=== PATIENT | male | born 1945 | race Caucasian/White ===

== ENCOUNTER 2020-04-28 12:36 | Inpatient (IN) ==
[2020-04-28] MEDS ORDERED: NS 0.9% 1000 ml BAG 1,000 ML IV ONE (12:42)
[2020-04-28 13:39] LABS: ABS Basophils 0.1 10^3/ul (0-0.2); ABS Eosinophils 0.1 10^3/ul (0-0.6); ABS Lymphocytes 1.7 10^3/ul (1.0-4.8); ABS Monocytes 0.5 10^3/ul (0-0.8); ABS Neutrophils 4.9 10^3/ul (1.5-7.7); Eosinophil % 1.1 %; Hematocrit 29 % (42-52); Hemoglobin 9.5 g/dL (14.0-18.0); Lymphocyte % 23.6 %; Mean Corpuscular HGB Conc 33 g/dL (31-36); Mean Corpuscular Hemoglobin 25 pg (27-31); Mean Corpuscular Volume 76 fL (80-94); Mean Platelet Volume 8.3 fL (7.4-10.4); Platelet Count 227 10^3/uL (150-450); Red Blood Count 3.85 10^6 /uL (4.18-5.48); Red Cell Distribution Width 17 % (10-15); White Blood Count 7.2 10^3/uL (3.5-10.8)
[2020-04-28 13:55] LABS: Activated Partial Thrombo Time 27.2 seconds (26.0-38.0); INR 1.16 (0.82-1.09)
[2020-04-28 13:58] LABS: Troponin I 0.02 ng/mL (<0.03)
[2020-04-28 14:19] LABS: Urine Appearance Cloudy; Urine Bilirubin Negative (Negative); Urine Blood 2+ (Negative); Urine Color Amber; Urine Glucose Negative (Negative); Urine Ketones Negative (Negative); Urine Nitrite Negative (Negative); Urine Protein 1+(30 mg/dL) (Negative); Urine Specific Gravity 1.025 (1.010-1.030); Urine Urobilinogen Negative (Negative)
[2020-04-28 14:20] LABS: ALT 81 U/L (7-52); AST 38 U/L (13-39); Albumin 2.7 g/dL (3.2-5.2); Albumin/Globulin Ratio 0.7 (1-3); Alkaline Phosphatase 104 U/L (34-104); Anion Gap 6 mmol/L (2-11); BUN/Creatinine Ratio 33.8 (8-20); Blood Urea Nitrogen 27 mg/dL (6-24); C Reactive Protein 91.44 mg/L (<8.01); CO2 Carbon Dioxide 24 mmol/L (22-32); Calcium 8.6 mg/dL (8.6-10.3); Chloride 107 mmol/L (101-111); EGFR African American 113.7 (>60); Globulin 3.7 g/dL (2-4); Glucose 85 mg/dL (70-100); Potassium 3.8 mmol/L (3.5-5.0); Sodium 137 mmol/L (135-145); Total Protein 6.4 g/dL (6.4-8.9)
[2020-04-28 14:21] LABS: Urine Bacteria Absent (Absent); Urine Red Blood Cell 1+(3-5/hpf) (Absent); Urine Squamous Epithelial Cell Present (Absent); Urine White Blood Cell 2+(11-20/hpf) (Absent)
[2020-04-28] MEDS ORDERED: Albuterol HFA INHALER 8 gm MDI INH ONE (14:49)
[2020-04-28] MEDS ORDERED: Amoxicillin/Clavul 875/125 TAB (Augmentin 875 tab) PO ONE (14:50)
[2020-04-28] MEDS ORDERED: methylPREDNISolone 125 mg 2 ML VIAL IV ONE (14:50)
[2020-04-28 15:19] LABS: LDH 183 U/L (140-271)
[2020-04-28 15:38] LABS: Ferritin 181.1 ng/mL (24-336)
[2020-04-28] MEDS ORDERED: Ondansetron 4 mg VIAL 2 MG/ML 2 ml VIAL IV PRN (16:54)
[2020-04-28] MEDS ORDERED: Albuterol HFA INHALER 8 gm MDI INH PRN (17:15)
[2020-04-28] MEDS ORDERED: Dextrose 50% Syringe 50 ml 25 GM/50 ML SYRINGE IV PUSH PRN (17:30)
[2020-04-28] MEDS ORDERED: Piperacillin/Tazobac ADVAN 3.375 GM in NS 0.9% 100 ml BAG 100 ML IV ONE (17:32)
[2020-04-28] MEDS ORDERED: Zosyn per Pharmacy NOTE FOLLOW UP SCH (18:00)
[2020-04-28 18:19] LABS: Total Iron Binding Capacity 307 mcg/dL (250-450); Transferrin 219 mg/dL (203-362)
[2020-04-28 18:23] LABS: % Iron Saturation 7 % (15-55); Iron < 20 ug/dL (50-212); Unsaturated Iron Binding < 292 ug/dL
[2020-04-28] MEDS: Mometasone/Formoter 100/5 MDI INH SCH (19:28)
[2020-04-28] MEDS: SPIRIVA Respimat (tiotropium) 2.5 mcg/inh Inhaler INH SCH (19:28)
[2020-04-28 20:28] LABS: Albumin 2.6 g/dL (3.2-5.2); Albumin/Globulin Ratio 0.6 (1-3); BUN/Creatinine Ratio 31.5 (8-20); Calcium 8.4 mg/dL (8.6-10.3); EGFR African American 126.4 (>60); EGFR Non-African American 104.5 (>60); Globulin 4.2 g/dL (2-4); Potassium 4.8 mmol/L (3.5-5.0); Total Bilirubin 0.4 mg/dL (0.2-1.0); Total Protein 6.8 g/dL (6.4-8.9)
[2020-04-28] MEDS ORDERED: Insulin GLARGINE 100 un/ml 10 ml VIAL SUBCUT SCH (21:00)
[2020-04-28] MEDS: Enoxaparin 40 MG/0.4 ML SYR SUBCUT SCH (22:15)
[2020-04-28] MEDS: Lidocaine PATCH 5% PATCH TRANSDERM SCH (22:17)
[2020-04-28] MEDS: ZOSYN 3.375 GM Q8H per EXTENDED INFUSION IV SCH (23:27)
[2020-04-29] MEDS ORDERED: Lidocaine Patch REMOVE PATCH PATCH OFF SCH (01:00)
[2020-04-29 06:40] LABS: ABS Lymphocytes 0.6 10^3/ul (1.0-4.8); ABS Monocytes 0.2 10^3/ul (0-0.8); ABS Neutrophils 4.1 10^3/ul (1.5-7.7); Hematocrit 30 % (42-52); Hemoglobin 9.6 g/dL (14.0-18.0); Lymphocyte % 12.5 %; Mean Corpuscular HGB Conc 32 g/dL (31-36); Mean Corpuscular Hemoglobin 25 pg (27-31); Mean Corpuscular Volume 77 fL (80-94); Mean Platelet Volume 8.5 fL (7.4-10.4); Platelet Count 196 10^3/uL (150-450); Red Blood Count 3.91 10^6 /uL (4.18-5.48); Red Cell Distribution Width 17 % (10-15); White Blood Count 4.9 10^3/uL (3.5-10.8)
[2020-04-29] MEDS: Mometasone/Formoter 100/5 MDI INH SCH ×2 (07:39→19:45)
[2020-04-29] MEDS: ZOSYN 3.375 GM Q8H per EXTENDED INFUSION IV SCH ×3 (09:24→23:07)
[2020-04-29] MEDS: Polyethylene Glycol 3350 17 GM PACKET PO SCH (09:30)
[2020-04-29] MEDS: Lidocaine PATCH 5% PATCH TRANSDERM SCH ×2 (09:38→20:29)
[2020-04-29 13:26] LABS: Glucose Confirmatory 402 mg/dL (70-100)
[2020-04-29] MEDS: SPIRIVA Respimat (tiotropium) 2.5 mcg/inh Inhaler INH SCH (19:45)
[2020-04-29] MEDS: Enoxaparin 40 MG/0.4 ML SYR SUBCUT SCH (20:19)
[2020-04-29] MEDS ORDERED: Insulin GLARGINE 100 un/ml 10 ml VIAL SUBCUT SCH (21:00)
[2020-04-30 06:42] LABS: ABS Eosinophils 0.1 10^3/ul (0-0.6); ABS Lymphocytes 1.6 10^3/ul (1.0-4.8); ABS Monocytes 0.4 10^3/ul (0-0.8); Eosinophil % 1.1 %; Hematocrit 28 % (42-52); Lymphocyte % 19.4 %; Mean Corpuscular HGB Conc 32 g/dL (31-36); Mean Corpuscular Hemoglobin 25 pg (27-31); Mean Corpuscular Volume 77 fL (80-94); Mean Platelet Volume 8.5 fL (7.4-10.4); Nucleated Red Blood Cells % 0.1; Platelet Count 216 10^3/uL (150-450); Red Blood Count 3.64 10^6 /uL (4.18-5.48); Red Cell Distribution Width 17 % (10-15); White Blood Count 8.1 10^3/uL (3.5-10.8)
[2020-04-30 07:03] LABS: Albumin 2.5 g/dL (3.2-5.2); Albumin/Globulin Ratio 0.7 (1-3); BUN/Creatinine Ratio 45.1 (8-20); C Reactive Protein 55.72 mg/L (<8.01); Calcium 8.1 mg/dL (8.6-10.3); EGFR African American 110.5 (>60); EGFR Non-African American 91.3 (>60); Globulin 3.6 g/dL (2-4); Potassium 4.3 mmol/L (3.5-5.0); Total Bilirubin 0.2 mg/dL (0.2-1.0); Total Protein 6.1 g/dL (6.4-8.9)
[2020-04-30] MEDS: Mometasone/Formoter 100/5 MDI INH SCH ×2 (08:04→19:48)
[2020-04-30] MEDS: ZOSYN 3.375 GM Q8H per EXTENDED INFUSION IV SCH ×2 (09:00→15:54)
[2020-04-30] MEDS: Lidocaine Patch REMOVE PATCH PATCH OFF SCH (09:02)
[2020-04-30] MEDS: Polyethylene Glycol 3350 17 GM PACKET PO SCH (09:03)
[2020-04-30] MEDS: SPIRIVA Respimat (tiotropium) 2.5 mcg/inh Inhaler INH SCH (19:48)
[2020-04-30] MEDS: Enoxaparin 40 MG/0.4 ML SYR SUBCUT SCH (21:59)
[2020-04-30] MEDS: Lidocaine PATCH 5% PATCH TRANSDERM SCH (22:00)
[2020-04-30] MEDS: Insulin GLARGINE 100 un/ml 10 ml VIAL SUBCUT SCH (22:02)
[2020-05-01] MEDS: ZOSYN 3.375 GM Q8H per EXTENDED INFUSION IV SCH ×3 (00:19→16:29)
[2020-05-01] MEDS: Mometasone/Formoter 100/5 MDI INH SCH ×2 (08:11→19:47)
[2020-05-01] MEDS: Lidocaine Patch REMOVE PATCH PATCH OFF SCH (08:54)
[2020-05-01] MEDS: Polyethylene Glycol 3350 17 GM PACKET PO SCH (09:06)
[2020-05-01] MEDS: Lidocaine PATCH 5% PATCH TRANSDERM SCH ×2 (09:07→16:26)
[2020-05-01 09:32] LABS: ABS Eosinophils 0.1 10^3/ul (0-0.6); ABS Lymphocytes 1.8 10^3/ul (1.0-4.8); ABS Monocytes 0.5 10^3/ul (0-0.8); ABS Neutrophils 5.1 10^3/ul (1.5-7.7); Eosinophil % 1.9 %; Hematocrit 31 % (42-52); Hemoglobin 9.6 g/dL (14.0-18.0); Lymphocyte % 23.3 %; Mean Corpuscular HGB Conc 31 g/dL (31-36); Mean Corpuscular Hemoglobin 24 pg (27-31); Mean Corpuscular Volume 78 fL (80-94); Mean Platelet Volume 8.3 fL (7.4-10.4); Platelet Count 265 10^3/uL (150-450); Red Blood Count 3.97 10^6 /uL (4.18-5.48); Red Cell Distribution Width 18 % (10-15); White Blood Count 7.5 10^3/uL (3.5-10.8)
[2020-05-01 09:50] LABS: BUN/Creatinine Ratio 30.1 (8-20); Calcium 8.2 mg/dL (8.6-10.3); EGFR African American 126.4 (>60); EGFR Non-African American 104.5 (>60)
[2020-05-01] MEDS: SPIRIVA Respimat (tiotropium) 2.5 mcg/inh Inhaler INH SCH (19:46)
[2020-05-01] MEDS: Enoxaparin 40 MG/0.4 ML SYR SUBCUT SCH (21:25)
[2020-05-01] MEDS: Insulin GLARGINE 100 un/ml 10 ml VIAL SUBCUT SCH (21:25)
[2020-05-02] MEDS: ZOSYN 3.375 GM Q8H per EXTENDED INFUSION IV SCH ×3 (01:09→16:36)
[2020-05-02] MEDS: Lidocaine Patch REMOVE PATCH PATCH OFF SCH ×2 (01:09→21:07)
[2020-05-02] MEDS ORDERED: Iodixanol (CONTRAST) 320 MG/ML 100 ML SDV IV ONE (07:15)
[2020-05-02] MEDS: Mometasone/Formoter 100/5 MDI INH SCH ×2 (08:22→20:03)
[2020-05-02] MEDS: Polyethylene Glycol 3350 17 GM PACKET PO SCH (08:43)
[2020-05-02] MEDS: Lidocaine PATCH 5% PATCH TRANSDERM SCH (08:43)
[2020-05-02] MEDS: SPIRIVA Respimat (tiotropium) 2.5 mcg/inh Inhaler INH SCH (20:03)
[2020-05-02] MEDS: Enoxaparin 40 MG/0.4 ML SYR SUBCUT SCH (21:05)
[2020-05-02] MEDS: Insulin GLARGINE 100 un/ml 10 ml VIAL SUBCUT SCH (21:05)
[2020-05-03] MEDS: ZOSYN 3.375 GM Q8H per EXTENDED INFUSION IV SCH ×3 (00:18→16:02)
[2020-05-03] MEDS: Mometasone/Formoter 100/5 MDI INH SCH ×2 (07:55→19:12)
[2020-05-03] MEDS: Lidocaine PATCH 5% PATCH TRANSDERM SCH (09:26)
[2020-05-03] MEDS: Polyethylene Glycol 3350 17 GM PACKET PO SCH (09:26)
[2020-05-03] MEDS ORDERED: Saline NASAL SPRAY 0.65% BTL BOTH NARES PRN (17:51)
[2020-05-03] MEDS: SPIRIVA Respimat (tiotropium) 2.5 mcg/inh Inhaler INH SCH (19:12)
[2020-05-03] MEDS: Enoxaparin 40 MG/0.4 ML SYR SUBCUT SCH (21:13)
[2020-05-03] MEDS: Insulin GLARGINE 100 un/ml 10 ml VIAL SUBCUT SCH (21:13)
[2020-05-03] MEDS: Lidocaine Patch REMOVE PATCH PATCH OFF SCH (21:14)
[2020-05-04] MEDS: ZOSYN 3.375 GM Q8H per EXTENDED INFUSION IV SCH ×2 (00:47→09:47)
[2020-05-04] MEDS: Mometasone/Formoter 100/5 MDI INH SCH (07:46)
[2020-05-04] MEDS: Lidocaine PATCH 5% PATCH TRANSDERM SCH (09:47)
[2020-05-04] MEDS: Polyethylene Glycol 3350 17 GM PACKET PO SCH (09:50)
[2020-05-04 11:18] VITALS: BP 136/52
== END 2020-05-04 17:00 | DRG 193 ==
LOC: ED 12:36 → MED 18:38
PROVIDERS: ADMIT Internal Medicine; ATTEND Internal Medicine

== ENCOUNTER 2020-06-06 22:56 | Inpatient (IN) ==
[2020-06-06] MEDS ORDERED: Lactated Ringers 1000 ml BAG IV.FLUID IV ONE (23:07)
[2020-06-07 01:03] LABS: Activated Partial Thrombo Time 35.4 seconds (26.0-38.0); INR 1.55 (0.82-1.09)
[2020-06-07 01:04] LABS: ABS Basophils 0.1 10^3/ul (0-0.2); ABS Lymphocytes 1.2 10^3/ul (1.0-4.8); ABS Monocytes 0.5 10^3/ul (0-0.8); ABS Neutrophils 16.9 10^3/ul (1.5-7.7); Eosinophil % 0.1 %; Hematocrit 31 % (42-52); Hemoglobin 9.8 g/dL (14.0-18.0); Lymphocyte % 6.2 %; Mean Corpuscular HGB Conc 32 g/dL (31-36); Mean Corpuscular Hemoglobin 23 pg (27-31); Mean Platelet Volume 8.8 fL (7.4-10.4); Platelet Count 280 10^3/uL (150-450); Red Blood Count 4.26 10^6 /uL (4.18-5.48); Red Cell Distribution Width 19 % (10-15); White Blood Count 18.6 10^3/uL (3.5-10.8)
[2020-06-07 01:09] LABS: ALT 23 U/L (7-52); AST 27 U/L (13-39); Albumin/Globulin Ratio 0.7 (1-3); Alkaline Phosphatase 91 U/L (34-104); Anion Gap 11 mmol/L (2-11); Blood Urea Nitrogen 39 mg/dL (6-24); C Reactive Protein 346.23 mg/L (<8.01); CO2 Carbon Dioxide 20 mmol/L (22-32); Calcium 8.7 mg/dL (8.6-10.3); Chloride 103 mmol/L (101-111); EGFR African American 69.9 (>60); EGFR Non-African American 57.8 (>60); Globulin 4.4 g/dL (2-4); Glucose 160 mg/dL (70-100); Potassium 3.4 mmol/L (3.5-5.0); Sodium 134 mmol/L (135-145); Total Protein 7.4 g/dL (6.4-8.9)
[2020-06-07] MEDS ORDERED: Albuterol 2.5mg/3 ml (0.083%) NEB.SOLN INH ONE (01:22)
[2020-06-07 01:26] LABS: Troponin I 0.07 ng/mL (<0.03)
[2020-06-07 01:28] LABS: Urine Appearance Cloudy; Urine Bilirubin Negative (Negative); Urine Blood 2+ (Negative); Urine Color Yellow; Urine Glucose Negative (Negative); Urine Ketones Negative (Negative); Urine Nitrite Negative (Negative); Urine Protein 2+(100 mg/dL) (Negative); Urine Specific Gravity 1.017 (1.002-1.030); Urine Urobilinogen Negative (Negative)
[2020-06-07] MEDS ORDERED: Piperacillin/Tazobac ADVAN 3.375 GM in NS 0.9% 100 ml BAG 100 ML IVPB ONE (01:33)
[2020-06-07 01:35] LABS: Urine Bacteria 1+ (Absent); Urine Red Blood Cell 3+(>10/hpf) (Absent); Urine Squamous Epithelial Cell Present (Absent); Urine White Blood Cell 3+(>20/hpf) (Absent)
[2020-06-07] MEDS ORDERED: Piperacillin/Tazobac 3.375 GM BAG ONE (02:40)
[2020-06-07 02:51] LABS: Mean Corpuscular Volume 73 fL (80-94)
[2020-06-07] MEDS ORDERED: Dextrose 50% Syringe 50 ml 25 GM/50 ML SYRINGE IV PUSH PRN (06:47)
[2020-06-07] MEDS ORDERED: NS 0.9% 1000 ml BAG 1,000 ML IV SCH ×2 (07:00→12:45)
[2020-06-07] MEDS ORDERED: Vancomycin 1,250 MG in NS 0.9% 250 ml 250 ML IVPB ONE (07:30)
[2020-06-07 07:51] LABS: Influenza A Molecular Negative (Negative); Influenza B Molecular Negative (Negative)
[2020-06-07] MEDS ORDERED: Vancomycin per Pharmacy 1 EA NOTE FOLLOW UP SCH (08:00)
[2020-06-07] MEDS ORDERED: Zosyn per Pharmacy NOTE FOLLOW UP SCH (08:00)
[2020-06-07 08:07] LABS: Anion Gap 11 mmol/L (2-11); Blood Urea Nitrogen 39 mg/dL (6-24); CO2 Carbon Dioxide 19 mmol/L (22-32); Calcium 8.2 mg/dL (8.6-10.3); Chloride 105 mmol/L (101-111); EGFR African American 64.9 (>60); EGFR Non-African American 53.7 (>60); Glucose 179 mg/dL (70-100); Potassium 3.3 mmol/L (3.5-5.0); Sodium 135 mmol/L (135-145)
[2020-06-07] MEDS: ZOSYN 3.375 GM Q8H per EXTENDED INFUSION IV SCH ×2 (09:20→16:52)
[2020-06-07] MEDS ORDERED: Lidocaine PATCH 5% PATCH TRANSDERM PRN (09:51)
[2020-06-07] MEDS ORDERED: Albuterol HFA INHALER 8 gm MDI INH PRN (10:05)
[2020-06-07] MEDS ORDERED: Analgesic BALM 114 GM TOPICAL PRN (10:09)
[2020-06-07] MEDS: Mometasone/Formoter 200/5 MDI INH SCH ×2 (11:12→19:50)
[2020-06-07 11:50] LABS: Troponin I 0.11 ng/mL (<0.03)
[2020-06-07] MEDS: Potassium Chlor 20 meq TAB.ER PO SCH ×2 (12:04→15:17)
[2020-06-07] MEDS: Insulin GLARGINE 100 un/ml 10 ml VIAL SUBCUT SCH (12:10)
[2020-06-07] MEDS: Hydrocortisone INJ 100 MG/2ML 2 ML VIAL IV SCH ×2 (12:12→18:08)
[2020-06-07] MEDS ORDERED: NS 0.9% 1000 ml BAG 1,000 ML IV ONE (12:34)
[2020-06-07] MEDS: Heparin 5000 UNITS/ML 1 mL VIAL SUBCUT SCH ×2 (13:39→21:39)
[2020-06-07 16:56] LABS: Troponin I 0.05 ng/mL (<0.03)
[2020-06-07] MEDS: SPIRIVA Respimat (tiotropium) 2.5 mcg/inh Inhaler INH SCH (19:51)
[2020-06-07] MEDS: Lidocaine Patch REMOVE PATCH PATCH OFF SCH (21:41)
[2020-06-08] MEDS: Hydrocortisone INJ 100 MG/2ML 2 ML VIAL IV SCH ×3 (01:34→16:17)
[2020-06-08] MEDS: ZOSYN 3.375 GM Q8H per EXTENDED INFUSION IV SCH ×3 (01:34→16:21)
[2020-06-08] MEDS: Heparin 5000 UNITS/ML 1 mL VIAL SUBCUT SCH ×3 (06:04→21:16)
[2020-06-08 06:33] LABS: ABS Lymphocytes 0.6 10^3/ul (1.0-4.8); ABS Monocytes 0.5 10^3/ul (0-0.8); ABS Neutrophils 12.7 10^3/ul (1.5-7.7); Eosinophil % 0.1 %; Hematocrit 26 % (42-52); Lymphocyte % 4.3 %; Mean Corpuscular HGB Conc 31 g/dL (31-36); Mean Corpuscular Hemoglobin 23 pg (27-31); Mean Corpuscular Volume 72 fL (80-94); Mean Platelet Volume 8.3 fL (7.4-10.4); Platelet Count 197 10^3/uL (150-450); Red Blood Count 3.57 10^6 /uL (4.18-5.48); Red Cell Distribution Width 18 % (10-15); White Blood Count 13.8 10^3/uL (3.5-10.8)
[2020-06-08 06:37] LABS: BUN/Creatinine Ratio 37.7 (8-20); EGFR African American 118.9 (>60); EGFR Non-African American 98.2 (>60); Potassium 3.4 mmol/L (3.5-5.0)
[2020-06-08] MEDS: Mometasone/Formoter 200/5 MDI INH SCH ×2 (08:00→20:46)
[2020-06-08] MEDS: Insulin GLARGINE 100 un/ml 10 ml VIAL SUBCUT SCH (08:08)
[2020-06-08] MEDS ORDERED: PAIN RELIEVING RUB (MENTHOL/SALICYLATE) 1 APPLIC TUBE TOPICAL PRN (12:00)
[2020-06-08] MEDS: SPIRIVA Respimat (tiotropium) 2.5 mcg/inh Inhaler INH SCH (20:46)
[2020-06-08] MEDS: Lidocaine Patch REMOVE PATCH PATCH OFF SCH (21:16)
[2020-06-09] MEDS: ZOSYN 3.375 GM Q8H per EXTENDED INFUSION IV SCH ×3 (01:33→17:58)
[2020-06-09] MEDS: Hydrocortisone INJ 100 MG/2ML 2 ML VIAL IV SCH ×2 (04:41→16:09)
[2020-06-09] MEDS: Heparin 5000 UNITS/ML 1 mL VIAL SUBCUT SCH ×3 (04:44→20:59)
[2020-06-09 05:37] LABS: ABS Lymphocytes 1.2 10^3/ul (1.0-4.8); ABS Monocytes 0.5 10^3/ul (0-0.8); Hematocrit 24 % (42-52); Hemoglobin 7.4 g/dL (14.0-18.0); Mean Corpuscular HGB Conc 31 g/dL (31-36); Mean Corpuscular Hemoglobin 23 pg (27-31); Mean Corpuscular Volume 73 fL (80-94); Mean Platelet Volume 8.7 fL (7.4-10.4); Platelet Count 176 10^3/uL (150-450); Red Blood Count 3.29 10^6 /uL (4.18-5.48); Red Cell Distribution Width 18 % (10-15); White Blood Count 11.8 10^3/uL (3.5-10.8)
[2020-06-09 05:54] LABS: Calcium 8.2 mg/dL (8.6-10.3); EGFR African American 124.4 (>60); EGFR Non-African American 102.8 (>60); Potassium 3.5 mmol/L (3.5-5.0)
[2020-06-09] MEDS: Mometasone/Formoter 200/5 MDI INH SCH ×2 (07:19→19:59)
[2020-06-09] MEDS: Insulin GLARGINE 100 un/ml 10 ml VIAL SUBCUT SCH (09:31)
[2020-06-09] MEDS: Lidocaine Patch REMOVE PATCH PATCH OFF SCH (19:17)
[2020-06-09] MEDS: SPIRIVA Respimat (tiotropium) 2.5 mcg/inh Inhaler INH SCH (19:59)
[2020-06-10] MEDS: ZOSYN 3.375 GM Q8H per EXTENDED INFUSION IV SCH ×3 (00:13→16:55)
[2020-06-10] MEDS: Heparin 5000 UNITS/ML 1 mL VIAL SUBCUT SCH ×3 (05:31→21:02)
[2020-06-10] MEDS: Insulin GLARGINE 100 un/ml 10 ml VIAL SUBCUT SCH (08:25)
[2020-06-10] MEDS: Mometasone/Formoter 200/5 MDI INH SCH ×2 (08:32→19:11)
[2020-06-10 10:37] LABS: ABS Lymphocytes 1.4 10^3/ul (1.0-4.8); ABS Monocytes 0.5 10^3/ul (0-0.8); ABS Neutrophils 5.7 10^3/ul (1.5-7.7); Eosinophil % 0.3 %; Hematocrit 23 % (42-52); Hemoglobin 7.2 g/dL (14.0-18.0); Lymphocyte % 18.3 %; Mean Corpuscular HGB Conc 31 g/dL (31-36); Mean Corpuscular Hemoglobin 23 pg (27-31); Mean Corpuscular Volume 72 fL (80-94); Mean Platelet Volume 8.7 fL (7.4-10.4); Platelet Count 192 10^3/uL (150-450); Red Blood Count 3.16 10^6 /uL (4.18-5.48); Red Cell Distribution Width 18 % (10-15); White Blood Count 7.6 10^3/uL (3.5-10.8)
[2020-06-10 11:05] LABS: Calcium 7.9 mg/dL (8.6-10.3); EGFR African American 132.7 (>60); EGFR Non-African American 109.6 (>60); Potassium 3.4 mmol/L (3.5-5.0)
[2020-06-10 12:14] LABS: C Reactive Protein 68.21 mg/L (<8.01)
[2020-06-10] MEDS: Lidocaine Patch REMOVE PATCH PATCH OFF SCH (19:01)
[2020-06-10] MEDS: SPIRIVA Respimat (tiotropium) 2.5 mcg/inh Inhaler INH SCH (20:31)
[2020-06-11] MEDS: ZOSYN 3.375 GM Q8H per EXTENDED INFUSION IV SCH ×3 (00:07→16:59)
[2020-06-11] MEDS: Heparin 5000 UNITS/ML 1 mL VIAL SUBCUT SCH ×3 (05:46→20:47)
[2020-06-11 06:58] LABS: ABS Eosinophils 0.1 10^3/ul (0-0.6); ABS Lymphocytes 2.1 10^3/ul (1.0-4.8); ABS Monocytes 0.6 10^3/ul (0-0.8); ABS Neutrophils 6.5 10^3/ul (1.5-7.7); Hematocrit 25 % (42-52); Hemoglobin 7.7 g/dL (14.0-18.0); Lymphocyte % 22.3 %; Mean Corpuscular HGB Conc 31 g/dL (31-36); Mean Corpuscular Hemoglobin 23 pg (27-31); Mean Corpuscular Volume 72 fL (80-94); Mean Platelet Volume 8.3 fL (7.4-10.4); Platelet Count 240 10^3/uL (150-450); Red Blood Count 3.39 10^6 /uL (4.18-5.48); Red Cell Distribution Width 19 % (10-15); White Blood Count 9.3 10^3/uL (3.5-10.8)
[2020-06-11 07:08] LABS: Blood Urea Nitrogen 19 mg/dL (6-24); CO2 Carbon Dioxide 20 mmol/L (22-32); Calcium 8.1 mg/dL (8.6-10.3); EGFR African American 137.2 (>60); EGFR Non-African American 113.4 (>60); Glucose 124 mg/dL (70-100); Potassium 3.4 mmol/L (3.5-5.0); Sodium 142 mmol/L (135-145)
[2020-06-11 07:10] LABS: Total Iron Binding Capacity 283 mcg/dL (250-450); Transferrin 202 mg/dL (203-362)
[2020-06-11 07:12] LABS: % Iron Saturation 7 % (15-55); Iron < 20 ug/dL (50-212); Unsaturated Iron Binding < 268 ug/dL
[2020-06-11 07:15] LABS: Anion Gap 9 mmol/L (2-11); Chloride 113 mmol/L (101-111)
[2020-06-11] MEDS: Mometasone/Formoter 200/5 MDI INH SCH ×2 (07:27→19:21)
[2020-06-11 07:28] LABS: Ferritin 105.5 ng/mL (24-336)
[2020-06-11] MEDS: Insulin GLARGINE 100 un/ml 10 ml VIAL SUBCUT SCH (08:54)
[2020-06-11] MEDS: Morphine 2 MG/ML SYRINGE IV PRN ×2 (11:16→20:40)
[2020-06-11] MEDS: SPIRIVA Respimat (tiotropium) 2.5 mcg/inh Inhaler INH SCH (19:23)
[2020-06-11] MEDS: Lidocaine Patch REMOVE PATCH PATCH OFF SCH (20:46)
[2020-06-12] MEDS: ZOSYN 3.375 GM Q8H per EXTENDED INFUSION IV SCH (00:31)
[2020-06-12] MEDS: Morphine 2 MG/ML SYRINGE IV PRN ×3 (05:30→19:57)
[2020-06-12] MEDS: Heparin 5000 UNITS/ML 1 mL VIAL SUBCUT SCH ×3 (05:32→20:00)
[2020-06-12 05:58] LABS: ABS Eosinophils 0.1 10^3/ul (0-0.6); ABS Lymphocytes 2.7 10^3/ul (1.0-4.8); ABS Monocytes 0.7 10^3/ul (0-0.8); Eosinophil % 1.6 %; Hematocrit 24 % (42-52); Hemoglobin 7.4 g/dL (14.0-18.0); Lymphocyte % 31.3 %; Mean Corpuscular HGB Conc 31 g/dL (31-36); Mean Corpuscular Hemoglobin 23 pg (27-31); Mean Corpuscular Volume 73 fL (80-94); Mean Platelet Volume 7.9 fL (7.4-10.4); Platelet Count 270 10^3/uL (150-450); Red Blood Count 3.26 10^6 /uL (4.18-5.48); Red Cell Distribution Width 18 % (10-15); White Blood Count 8.5 10^3/uL (3.5-10.8)
[2020-06-12 06:04] LABS: Calcium 7.7 mg/dL (8.6-10.3); EGFR African American 144.5 (>60); EGFR Non-African American 119.4 (>60); Potassium 3.3 mmol/L (3.5-5.0)
[2020-06-12 06:47] LABS: Microcytosis 1+
[2020-06-12] MEDS: Mometasone/Formoter 200/5 MDI INH SCH ×2 (07:33→19:16)
[2020-06-12] MEDS ORDERED: Potassium Chlor 20 meq TAB.ER PO ONE ×2 (09:46→12:00)
[2020-06-12] MEDS: Insulin GLARGINE 100 un/ml 10 ml VIAL SUBCUT SCH (09:59)
[2020-06-12] MEDS: SPIRIVA Respimat (tiotropium) 2.5 mcg/inh Inhaler INH SCH (19:19)
[2020-06-12] MEDS: Lidocaine Patch REMOVE PATCH PATCH OFF SCH (20:00)
[2020-06-13] MEDS: Morphine 2 MG/ML SYRINGE IV PRN ×3 (04:11→10:10)
[2020-06-13] MEDS: Heparin 5000 UNITS/ML 1 mL VIAL SUBCUT SCH (05:45)
[2020-06-13] MEDS: Mometasone/Formoter 200/5 MDI INH SCH (07:23)
[2020-06-13] MEDS: Insulin GLARGINE 100 un/ml 10 ml VIAL SUBCUT SCH (08:02)
[2020-06-13 11:30] VITALS: BP 147/58
== END 2020-06-13 10:45 | DRG 871 ==
LOC: ED 22:56 → MED 06-07 07:09
PROVIDERS: ADMIT Internal Medicine; ATTEND Internal Medicine

== ENCOUNTER 2020-07-03 09:04 | Inpatient (IN) ==
[2020-07-03] MEDS: NS 0.9% 1000 ml BAG 1,000 ML IV.FLUID IV ONE ×3 (09:26→11:30)
[2020-07-03] MEDS ORDERED: cefTRIAXone 1 gm/50 mL NS BAG 1 GM/50 ML BAG IV ONE (09:41)
[2020-07-03 09:55] LABS: ABS Basophils 0.1 10^3/ul (0-0.2); ABS Lymphocytes 2.1 10^3/ul (1.0-4.8); ABS Monocytes 0.7 10^3/ul (0-0.8); ABS Neutrophils 8.5 10^3/ul (1.5-7.7); Eosinophil % 0.3 %; Hematocrit 32 % (42-52); Hemoglobin 9.9 g/dL (14.0-18.0); Lymphocyte % 18.1 %; Mean Corpuscular HGB Conc 31 g/dL (31-36); Mean Corpuscular Hemoglobin 22 pg (27-31); Mean Corpuscular Volume 69 fL (80-94); Mean Platelet Volume 7.7 fL (7.4-10.4); Platelet Count 278 10^3/uL (150-450); Red Blood Count 4.63 10^6 /uL (4.18-5.48); Red Cell Distribution Width 19 % (10-15); White Blood Count 11.4 10^3/uL (3.5-10.8)
[2020-07-03 09:57] LABS: Urine Appearance Cloudy; Urine Bilirubin Negative (Negative); Urine Blood 2+ (Negative); Urine Color Yellow; Urine Glucose Negative (Negative); Urine Ketones Negative (Negative); Urine Nitrite Negative (Negative); Urine Protein Negative (Negative); Urine Specific Gravity 1.013 (1.002-1.030); Urine Urobilinogen Negative (Negative)
[2020-07-03 09:58] LABS: INR 1.27 (0.82-1.09)
[2020-07-03 10:02] LABS: Urine Bacteria Absent (Absent); Urine Red Blood Cell 3+(>10/hpf) (Absent); Urine Squamous Epithelial Cell Present (Absent); Urine White Blood Cell 3+(>20/hpf) (Absent)
[2020-07-03 10:07] LABS: ALT 27 U/L (7-52); AST 28 U/L (13-39); Albumin 3.1 g/dL (3.2-5.2); Albumin/Globulin Ratio 0.7 (1-3); Alkaline Phosphatase 101 U/L (34-104); Anion Gap 9 mmol/L (2-11); Blood Urea Nitrogen 26 mg/dL (6-24); C Reactive Protein 39.16 mg/L (<8.01); CO2 Carbon Dioxide 24 mmol/L (22-32); Calcium 8.8 mg/dL (8.6-10.3); Chloride 99 mmol/L (101-111); EGFR African American 103.2 (>60); EGFR Non-African American 85.3 (>60); Globulin 4.5 g/dL (2-4); Glucose 101 mg/dL (70-100); Potassium 3.6 mmol/L (3.5-5.0); Sodium 132 mmol/L (135-145); Total Protein 7.6 g/dL (6.4-8.9)
[2020-07-03 10:12] LABS: Troponin I 0.03 ng/mL (<0.03)
[2020-07-03] MEDS ORDERED: Ondansetron 4 mg VIAL 2 MG/ML 2 ml VIAL IV PRN (11:55)
[2020-07-03] MEDS ORDERED: Vancomycin per Pharmacy 1 EA NOTE FOLLOW UP PRN (12:17)
[2020-07-03] MEDS ORDERED: Vancomycin 1,500 MG in NS 0.9% 250 ml 250 ML IVPB ONE (13:00)
[2020-07-03] MEDS ORDERED: Dextrose 50% Syringe 50 ml 25 GM/50 ML SYRINGE IV PUSH PRN (13:37)
[2020-07-03] MEDS ORDERED: Albuterol HFA INHALER 8 gm MDI INH PRN (13:56)
[2020-07-03] MEDS: Enoxaparin 40 MG/0.4 ML SYR SUBCUT SCH (13:57)
[2020-07-03 15:34] LABS: Troponin I 0.04 ng/mL (<0.03)
[2020-07-03 19:07] LABS: Troponin I 0.04 ng/mL (<0.03)
[2020-07-03] MEDS: SPIRIVA Respimat (tiotropium) 2.5 mcg/inh Inhaler INH SCH (19:15)
[2020-07-03] MEDS: Mometasone/Formoter 200/5 MDI INH SCH (19:16)
[2020-07-03 21:23] LABS: Troponin I 0.04 ng/mL (<0.03)
[2020-07-04 06:10] LABS: ABS Basophils 0.1 10^3/ul (0-0.2); ABS Lymphocytes 1.1 10^3/ul (1.0-4.8); ABS Monocytes 0.4 10^3/ul (0-0.8); ABS Neutrophils 5.7 10^3/ul (1.5-7.7); Hematocrit 31 % (42-52); Hemoglobin 9.7 g/dL (14.0-18.0); Lymphocyte % 15.9 %; Mean Corpuscular HGB Conc 31 g/dL (31-36); Mean Corpuscular Hemoglobin 22 pg (27-31); Mean Corpuscular Volume 70 fL (80-94); Mean Platelet Volume 7.8 fL (7.4-10.4); Nucleated Red Blood Cells % 0.1; Platelet Count 226 10^3/uL (150-450); Red Blood Count 4.45 10^6 /uL (4.18-5.48); Red Cell Distribution Width 19 % (10-15); White Blood Count 7.2 10^3/uL (3.5-10.8)
[2020-07-04] MEDS: Vancomycin 750 MG in NS 0.9% 250 ML IVPB SCH ×4 (06:16→22:20)
[2020-07-04 06:17] LABS: EGFR African American 144.5 (>60); EGFR Non-African American 119.4 (>60); Potassium 3.8 mmol/L (3.5-5.0)
[2020-07-04] MEDS ORDERED: diPHENhydraMINE IV 50 MG/ML 1 ml VIAL (BENADRYL) IV ONE (07:30)
[2020-07-04] MEDS: Mometasone/Formoter 200/5 MDI INH SCH ×2 (07:43→20:14)
[2020-07-04] MEDS ORDERED: Iodixanol (CONTRAST) 320 MG/ML 100 ML SDV IV ONE (08:03)
[2020-07-04] MEDS: cefTRIAXone 1 gm/50 mL NS BAG 1 GM/50 ML BAG IVPB SCH (10:50)
[2020-07-04] MEDS: Insulin GLARGINE 100 un/ml 10 ml VIAL SUBCUT SCH (10:50)
[2020-07-04] MEDS: Polyethylene Glycol 3350 17 GM PACKET PO SCH (10:54)
[2020-07-04] MEDS ORDERED: Vancomycin Trough Check NOTE FOLLOW UP ONE (13:30)
[2020-07-04] MEDS: Enoxaparin 40 MG/0.4 ML SYR SUBCUT SCH (13:47)
[2020-07-04] MEDS: SPIRIVA Respimat (tiotropium) 2.5 mcg/inh Inhaler INH SCH (20:15)
[2020-07-05 01:00] LABS: Urine Appearance Cloudy; Urine Bilirubin Negative (Negative); Urine Blood Negative (Negative); Urine Color Yellow; Urine Glucose 3+(>=500 mg/dL) (Negative); Urine Ketones Negative (Negative); Urine Nitrite Negative (Negative); Urine Protein 1+(30 mg/dL) (Negative); Urine Specific Gravity 1.036 (1.002-1.030); Urine Urobilinogen Negative (Negative)
[2020-07-05 01:05] LABS: Urine Bacteria Absent (Absent); Urine Red Blood Cell 1+(3-5/hpf) (Absent); Urine Squamous Epithelial Cell Present (Absent); Urine White Blood Cell 3+(>20/hpf) (Absent)
[2020-07-05] MEDS: Vancomycin 750 MG in NS 0.9% 250 ML IVPB SCH ×3 (05:42→22:21)
[2020-07-05] MEDS: Polyethylene Glycol 3350 17 GM PACKET PO SCH (08:26)
[2020-07-05] MEDS: Insulin GLARGINE 100 un/ml 10 ml VIAL SUBCUT SCH (08:27)
[2020-07-05 08:51] LABS: ABS Eosinophils 0.1 10^3/ul (0-0.6); ABS Monocytes 0.7 10^3/ul (0-0.8); ABS Neutrophils 6.1 10^3/ul (1.5-7.7); Eosinophil % 1.2 %; Hematocrit 28 % (42-52); Hemoglobin 8.5 g/dL (14.0-18.0); Lymphocyte % 22.7 %; Mean Corpuscular HGB Conc 30 g/dL (31-36); Mean Corpuscular Hemoglobin 21 pg (27-31); Mean Corpuscular Volume 70 fL (80-94); Mean Platelet Volume 8.1 fL (7.4-10.4); Platelet Count 240 10^3/uL (150-450); Red Blood Count 3.98 10^6 /uL (4.18-5.48); Red Cell Distribution Width 19 % (10-15); White Blood Count 8.9 10^3/uL (3.5-10.8)
[2020-07-05 09:00] LABS: INR 1.12 (0.82-1.09)
[2020-07-05 09:11] LABS: Albumin 2.6 g/dL (3.2-5.2); Albumin/Globulin Ratio 0.7 (1-3); C Reactive Protein 55.99 mg/L (<8.01); Calcium 7.8 mg/dL (8.6-10.3); EGFR African American 158.5 (>60); Globulin 3.6 g/dL (2-4); Magnesium 1.8 mg/dL (1.9-2.7); Potassium 3.6 mmol/L (3.5-5.0); Total Bilirubin 0.2 mg/dL (0.2-1.0); Total Protein 6.2 g/dL (6.4-8.9)
[2020-07-05] MEDS: cefTRIAXone 1 gm/50 mL NS BAG 1 GM/50 ML BAG IVPB SCH (10:14)
[2020-07-05] MEDS: Mometasone/Formoter 200/5 MDI INH SCH ×2 (11:23→20:37)
[2020-07-05] MEDS: Enoxaparin 40 MG/0.4 ML SYR SUBCUT SCH (12:58)
[2020-07-05] MEDS: Collagenase 250 units/gm OINT 1 tube TOPICAL SCH (18:18)
[2020-07-05] MEDS: SPIRIVA Respimat (tiotropium) 2.5 mcg/inh Inhaler INH SCH (20:37)
[2020-07-06] MEDS: Vancomycin 750 MG in NS 0.9% 250 ML IVPB SCH ×3 (06:03→19:59)
[2020-07-06 06:59] LABS: Hematocrit 30 % (42-52); Hemoglobin 9.1 g/dL (14.0-18.0); Mean Corpuscular HGB Conc 31 g/dL (31-36); Mean Corpuscular Hemoglobin 22 pg (27-31); Mean Corpuscular Volume 70 fL (80-94); Mean Platelet Volume 7.6 fL (7.4-10.4); Platelet Count 251 10^3/uL (150-450); Red Blood Count 4.22 10^6 /uL (4.18-5.48); Red Cell Distribution Width 19 % (10-15); White Blood Count 8.1 10^3/uL (3.5-10.8)
[2020-07-06] MEDS: Mometasone/Formoter 200/5 MDI INH SCH ×2 (07:24→20:20)
[2020-07-06 08:30] LABS: ABS Basophils 0.1 10^3/ul (0-0.2); ABS Eosinophils 0.3 10^3/ul (0-0.6); ABS Lymphocytes 2.2 10^3/ul (1.0-4.8); ABS Monocytes 0.6 10^3/ul (0-0.8); Eosinophil % 3.4 %; Lymphocyte % 27.3 %
[2020-07-06] MEDS: Insulin GLARGINE 100 un/ml 10 ml VIAL SUBCUT SCH (09:32)
[2020-07-06] MEDS: Polyethylene Glycol 3350 17 GM PACKET PO SCH (09:55)
[2020-07-06] MEDS: Enoxaparin 40 MG/0.4 ML SYR SUBCUT SCH (12:35)
[2020-07-06] MEDS: Collagenase 250 units/gm OINT 1 tube TOPICAL SCH (13:11)
[2020-07-06] MEDS: SPIRIVA Respimat (tiotropium) 2.5 mcg/inh Inhaler INH SCH (20:22)
[2020-07-07] MEDS ORDERED: Vancomycin Trough Check NOTE FOLLOW UP ONE (06:00)
[2020-07-07 07:02] LABS: EGFR African American 168.2 (>60)
[2020-07-07] MEDS: Mometasone/Formoter 200/5 MDI INH SCH (08:19)
[2020-07-07] MEDS: Insulin GLARGINE 100 un/ml 10 ml VIAL SUBCUT SCH (08:52)
[2020-07-07] MEDS: Polyethylene Glycol 3350 17 GM PACKET PO SCH (08:54)
[2020-07-07] MEDS: Vancomycin 750 MG in NS 0.9% 250 ML IVPB SCH (08:57)
[2020-07-07] MEDS: Collagenase 250 units/gm OINT 1 tube TOPICAL SCH (10:21)
[2020-07-07] MEDS: Enoxaparin 40 MG/0.4 ML SYR SUBCUT SCH (13:07)
[2020-07-07 16:13] VITALS: BP 140/64
== END 2020-07-07 17:00 | DRG 872 ==
LOC: ED 09:04 → MED 12:55
PROVIDERS: ADMIT Internal Medicine; ATTEND Internal Medicine

== ENCOUNTER 2022-07-11 02:27 | Observation (INO) ==
[2022-07-11 03:29] LABS: ABS Basophils 0.1 10^3/uL (0.0-0.1); ABS Eosinophils 0.3 10^3/uL (0.0-0.5); ABS Lymphocytes 4.9 10^3/uL (1.0-4.8); ABS Monocytes 0.9 10^3/uL (0.0-1.1); ABS Neutrophils 7.8 10^3/uL (1.5-7.6); ABS Nucleated RBC 0.01 10^3/ul; Eosinophil % 2.3 %; Hematocrit 41.2 % (38-53); Hemoglobin 13.8 g/dL (13.2-16.3); Lymphocyte % 34.9 %; Mean Corpuscular Hemoglobin 27.8 pg (27-33); Mean Corpuscular Hgb Conc 33.4 g/dL (31-36); Mean Corpuscular Volume 83.4 fL (80-97); Platelet Count 229 10^3/uL (150-450); Red Blood Count 4.94 10^6/uL (4.06-5.63); Red Cell Distribution Width 16.5 % (12-17); White Blood Count 13.9 10^3/uL (3.6-10.2)
[2022-07-11 03:34] LABS: INR 1.04 (0.88-1.18)
[2022-07-11 04:12] LABS: Albumin 3.9 g/dL (3.2-5.2); Albumin/Globulin Ratio 1.1 (1-3); C Reactive Protein 12.43 mg/L (<8.01); Calcium 9.5 mg/dL (8.6-10.3); Creatinine, Serum 0.97 mg/dL (0.67-1.17); Globulin 3.6 g/dL (2-4); Potassium 4.1 mmol/L (3.5-5.0); Total Bilirubin 0.5 mg/dL (0.2-1.0); Total Protein 7.5 g/dL (6.4-8.9); eGFR CKD-EPI 79.9 (>60)
[2022-07-11 04:39] LABS: Urine Appearance Turbid; Urine Bilirubin Negative (Negative); Urine Blood 3+ (Negative); Urine Color Yellow; Urine Glucose 2+(150 mg/dL) (Negative); Urine Ketones Negative (Negative); Urine Nitrite Positive (Negative); Urine Protein 2+(100 mg/dL) (Negative); Urine Specific Gravity 1.014 (1.002-1.030); Urine Urobilinogen Negative (Negative)
[2022-07-11] MEDS ORDERED: Piperacillin/Tazobac ADVAN 3.375 GM in NS 0.9% 100 ml BAG 100 ML IV ONE (04:52)
[2022-07-11] MEDS ORDERED: Lactated Ringers 1000 ml BAG 1,000 ML IV ONE (04:53)
[2022-07-11 05:13] LABS: Urine Bacteria 1+ (Absent); Urine Red Blood Cell 3+(>10/hpf) (Absent); Urine Squamous Epithelial Cell Present (Absent); Urine White Blood Cell 3+(>20/hpf) (Absent)
[2022-07-11] MEDS ORDERED: Vancomycin 1,000 MG in NS 0.9% 250 ml 250 ML IVPB ONE (05:35)
[2022-07-11] MEDS ORDERED: Vancomycin per Pharmacy 1 EA NOTE FOLLOW UP SCH (06:00)
[2022-07-11] MEDS ORDERED: Albuterol HFA INHALER 8 gm MDI INH PRN (06:04)
[2022-07-11] MEDS ORDERED: fentaNYL 100 mcg/2 ml 50 MCG/ML VIAL IV SLOW PU PRN (06:39)
[2022-07-11] MEDS ORDERED: Dextrose 50% Syringe 50 ml 25 GM/50 ML SYRINGE IV PUSH PRN (06:50)
[2022-07-11] MEDS ORDERED: Lactated Ringers 1000 ml BAG 1,000 ML IV SCH (07:00)
[2022-07-11] MEDS: Insulin GLARGINE 100 un/ml 10 ml VIAL SUBCUT SCH (08:06)
[2022-07-11] MEDS: Enoxaparin 40 MG/0.4 ML SYR SUBCUT SCH (08:06)
[2022-07-11] MEDS ORDERED: Cefepime ADVAN 1 GM in NS 0.9% 50 ML 50 ML IVPB SCH (09:00)
[2022-07-11] MEDS: Mometasone/Formoter 200/5 MDI INH SCH ×2 (09:26→20:17)
[2022-07-11] MEDS ORDERED: Cefepime 1 GM in Dextrose 1 GM/50 ML BAG IV SCH (09:30)
[2022-07-11] MEDS: Vancomycin 1000 MG in NS 0.9% 250 ML IVPB SCH (19:58)
[2022-07-11] MEDS ORDERED: Vancomycin 1000 MG in NS 0.9% 250 ML IVPB SCH (20:00)
[2022-07-11] MEDS: SPIRIVA Respimat (tiotropium) 2.5 mcg/inh Inhaler INH SCH (20:58)
[2022-07-11] MEDS: Polyethylene Glycol 3350 17 GM PACKET PO SCH (21:38)
[2022-07-11] MEDS: Cefepime 1 GM in Dextrose 1 GM/50 ML BAG IV SCH (21:41)
[2022-07-12 05:56] LABS: ABS Eosinophils 0.2 10^3/uL (0.0-0.5); ABS Lymphocytes 2.3 10^3/uL (1.0-4.8); ABS Monocytes 0.6 10^3/uL (0.0-1.1); ABS Neutrophils 5.2 10^3/uL (1.5-7.6); ABS Nucleated RBC 0.01 10^3/ul; Eosinophil % 2.9 %; Hematocrit 34.4 % (38-53); Hemoglobin 11.5 g/dL (13.2-16.3); Lymphocyte % 27.3 %; Mean Corpuscular Hemoglobin 27.7 pg (27-33); Mean Corpuscular Hgb Conc 33.4 g/dL (31-36); Mean Platelet Volume 8.7 fL (7.5-11.2); Nucleated Red Blood Cells % 0.1 /100 WBC (0.0-0.4); Platelet Count 182 10^3/uL (150-450); Red Blood Count 4.15 10^6/uL (4.06-5.63); Red Cell Distribution Width 16.5 % (12-17); White Blood Count 8.3 10^3/uL (3.6-10.2)
[2022-07-12] MEDS: Enoxaparin 40 MG/0.4 ML SYR SUBCUT SCH (06:07)
[2022-07-12 06:26] LABS: Blood Urea Nitrogen 12 mg/dL (6-24); CO2 Carbon Dioxide 26 mmol/L (22-32); Calcium 8.6 mg/dL (8.6-10.3); Chloride 107 mmol/L (101-111); Creatinine, Serum 0.74 mg/dL (0.67-1.17); Glucose 133 mg/dL (70-100); Magnesium 1.7 mg/dL (1.9-2.7); Sodium 139 mmol/L (135-145); eGFR CKD-EPI 92.7 (>60)
[2022-07-12 06:29] LABS: Anion Gap 6 mmol/L (2-16)
[2022-07-12] MEDS ORDERED: Magnesium Sulfate 2 gm BAG 2 GM/50 ML BAG IVPB ONE (07:18)
[2022-07-12] MEDS: Mometasone/Formoter 200/5 MDI INH SCH ×2 (07:32→20:09)
[2022-07-12] MEDS: Polyethylene Glycol 3350 17 GM PACKET PO SCH ×2 (09:56→21:47)
[2022-07-12] MEDS: Insulin GLARGINE 100 un/ml 10 ml VIAL SUBCUT SCH (09:57)
[2022-07-12] MEDS: Vancomycin 1000 MG in NS 0.9% 250 ML IVPB SCH ×2 (11:15→19:56)
[2022-07-12] MEDS: Cefepime 1 GM in Dextrose 1 GM/50 ML BAG IV SCH ×2 (14:34→21:46)
[2022-07-12] MEDS ORDERED: Vancomycin per Pharmacy 1 EA NOTE FOLLOW UP SCH (16:00)
[2022-07-12] MEDS: SPIRIVA Respimat (tiotropium) 2.5 mcg/inh Inhaler INH SCH (20:09)
[2022-07-13] MEDS: Enoxaparin 40 MG/0.4 ML SYR SUBCUT SCH (06:35)
[2022-07-13 06:39] VITALS: BP 145/78
[2022-07-13 07:24] LABS: ABS Basophils 0.1 10^3/uL (0.0-0.1); ABS Eosinophils 0.2 10^3/uL (0.0-0.5); ABS Lymphocytes 2.3 10^3/uL (1.0-4.8); ABS Monocytes 0.5 10^3/uL (0.0-1.1); ABS Neutrophils 4.8 10^3/uL (1.5-7.6); Eosinophil % 2.7 %; Hematocrit 35.9 % (38-53); Hemoglobin 11.9 g/dL (13.2-16.3); Lymphocyte % 28.7 %; Mean Corpuscular Hgb Conc 33.3 g/dL (31-36); Mean Corpuscular Volume 84.1 fL (80-97); Mean Platelet Volume 8.2 fL (7.5-11.2); Nucleated Red Blood Cells % 0.1 /100 WBC (0.0-0.4); Platelet Count 169 10^3/uL (150-450); Red Blood Count 4.26 10^6/uL (4.06-5.63); Red Cell Distribution Width 16.6 % (12-17); White Blood Count 7.9 10^3/uL (3.6-10.2)
[2022-07-13] MEDS ORDERED: Vancomycin Trough Check NOTE FOLLOW UP ONE (07:30)
[2022-07-13 08:05] LABS: Calcium 8.5 mg/dL (8.6-10.3); Creatinine, Serum 0.72 mg/dL (0.67-1.17); Magnesium 1.9 mg/dL (1.9-2.7); Potassium 4.1 mmol/L (3.5-5.0); eGFR CKD-EPI 93.5 (>60)
[2022-07-13] MEDS: Mometasone/Formoter 200/5 MDI INH SCH (08:32)
[2022-07-13] MEDS: Insulin GLARGINE 100 un/ml 10 ml VIAL SUBCUT SCH (09:50)
[2022-07-13] MEDS: Polyethylene Glycol 3350 17 GM PACKET PO SCH (09:57)
[2022-07-13] MEDS: Vancomycin 1000 MG in NS 0.9% 250 ML IVPB SCH (10:58)
[2022-07-13] MEDS ORDERED: Sulfamethox/Trimethoprim DS TAB 800/160 mg PO SCH (11:00)
[2022-07-13] MEDS: Cefepime 1 GM in Dextrose 1 GM/50 ML BAG IV SCH (12:35)
== END 2022-07-13 14:25 ==
LOC: ED 02:27 → SUATTDRO 05:33 → INTOOBSV 05:33 → EDHOLD 05:33 → SUATTDRO 05:34 → EDHOLD 14:44 → MEDTELE 15:36
PROVIDERS: ADMIT Internal Medicine; ATTEND Student in an Organized Health Care Education/Training Program

== ENCOUNTER 2023-01-03 07:10 | Observation (INO) ==
[2023-01-03] MEDS ORDERED: Lactated Ringers SEPSIS* BAG 2,400 ML IV ONE (07:29)
[2023-01-03] MEDS ORDERED: Piperacillin/Tazobac 3.375 BAG 3.375 GM/100 ML BAG IV ONE (07:32)
[2023-01-03] MEDS ORDERED: Acetaminophen IV 1 GM/100ML 1,000 MG/100 ML BAG IV ONE (08:14)
[2023-01-03 08:56] LABS: ABS Basophils 0.1 10^3/uL (0.0-0.1); ABS Eosinophils 0.2 10^3/uL (0.0-0.5); ABS Lymphocytes 1.2 10^3/uL (1.0-4.8); ABS Monocytes 0.6 10^3/uL (0.0-1.1); ABS Neutrophils 7.1 10^3/uL (1.5-7.6); Hemoglobin 11.8 g/dL (13.2-16.3); Mean Corpuscular Hemoglobin 28.8 pg (27-33); Mean Corpuscular Hgb Conc 32.8 g/dL (31-36); Mean Corpuscular Volume 87.8 fL (80-97); Mean Platelet Volume 8.7 fL (7.5-11.2); Platelet Count 177 10^3/uL (150-450); Red Blood Count 4.09 10^6/uL (4.06-5.63); Red Cell Distribution Width 17.3 % (12-17); White Blood Count 9.1 10^3/uL (3.6-10.2)
[2023-01-03 09:05] LABS: Activated Partial Thrombo Time 26.8 seconds (26.0-38.0); INR 1.14 (0.83-1.13)
[2023-01-03 09:36] LABS: Albumin 3.4 g/dL (3.2-5.2); Albumin/Globulin Ratio 1.2 (1-3); C Reactive Protein 13.88 mg/L (<8.01); Calcium 8.4 mg/dL (8.6-10.3); Creatinine, Serum 1.1 mg/dL (0.67-1.17); Globulin 2.9 g/dL (2-4); Magnesium 1.5 mg/dL (1.9-2.7); Potassium 4.3 mmol/L (3.5-5.0); Total Bilirubin 0.5 mg/dL (0.2-1.0); Total Protein 6.3 g/dL (6.4-8.9); eGFR CKD-EPI 68.7 (>60)
[2023-01-03] MEDS ORDERED: Magnesium Sulfate 2 gm BAG 2 GM/50 ML BAG IVPB ONE (10:05)
[2023-01-03 10:11] LABS: High Sensitivity Troponin 1 Hr 17 pg/mL (<20)
[2023-01-03 10:18] LABS: Urine Appearance Turbid; Urine Bilirubin Negative (Negative); Urine Blood 2+ (Negative); Urine Color Yellow; Urine Glucose Negative (Negative); Urine Ketones Negative (Negative); Urine Nitrite Negative (Negative); Urine Protein 2+(100 mg/dL) (Negative); Urine Specific Gravity 1.019 (1.002-1.030); Urine Urobilinogen Negative (Negative)
[2023-01-03 10:23] LABS: Urine Bacteria 1+ (Absent); Urine Red Blood Cell 3+(>10/hpf) (Absent); Urine Squamous Epithelial Cell Present (Absent); Urine White Blood Cell 3+(>20/hpf) (Absent)
[2023-01-03] MEDS ORDERED: Albuterol/Ipratropium NEB.SOL (2.5/0.5 MG) 3 ML NEB.SOLN INH ONE (12:03)
[2023-01-03] MEDS ORDERED: methylPREDNISolone SOD SUCC 125 mg 2 ML VIAL IV ONE (12:10)
[2023-01-03] MEDS: Enoxaparin 40 MG/0.4 ML SYR SUBCUT SCH (14:03)
[2023-01-03] MEDS ORDERED: Dextrose 50% Syringe 50 ml 25 GM/50 ML SYRINGE IV PUSH PRN (14:10)
[2023-01-03] MEDS ORDERED: Zosyn per Pharmacy NOTE FOLLOW UP SCH (15:00)
[2023-01-03] MEDS ORDERED: ZOSYN 3.375 GM x ONE DOSE over 30 miuntes IV (15:00)
[2023-01-03] MEDS: Albuterol/Ipratropium NEB.SOL (2.5/0.5 MG) 3 ML NEB.SOLN INH SCH (19:19)
[2023-01-03] MEDS: ZOSYN 3.375 GM Q8H per EXTENDED INFUSION IV SCH (20:27)
[2023-01-03] MEDS ORDERED: Insulin GLARGINE 100 un/ml 10 ml VIAL SUBCUT SCH (21:00)
[2023-01-04] MEDS: ZOSYN 3.375 GM Q8H per EXTENDED INFUSION IV SCH ×3 (03:24→19:43)
[2023-01-04 06:35] LABS: ABS Lymphocytes 0.7 10^3/uL (1.0-4.8); ABS Monocytes 0.6 10^3/uL (0.0-1.1); ABS Neutrophils 5.5 10^3/uL (1.5-7.6); Eosinophil % 0.1 %; Hematocrit 33.9 % (38-53); Hemoglobin 11.3 g/dL (13.2-16.3); Lymphocyte % 9.7 %; Mean Corpuscular Hemoglobin 28.8 pg (27-33); Mean Corpuscular Hgb Conc 33.3 g/dL (31-36); Mean Corpuscular Volume 86.5 fL (80-97); Mean Platelet Volume 8.5 fL (7.5-11.2); Platelet Count 143 10^3/uL (150-450); Red Blood Count 3.92 10^6/uL (4.06-5.63); Red Cell Distribution Width 17.4 % (12-17); White Blood Count 6.8 10^3/uL (3.6-10.2)
[2023-01-04] MEDS: Albuterol/Ipratropium NEB.SOL (2.5/0.5 MG) 3 ML NEB.SOLN INH SCH (07:41)
[2023-01-04 08:04] LABS: Albumin 3.1 g/dL (3.2-5.2); Albumin/Globulin Ratio 1.1 (1-3); Calcium 8.4 mg/dL (8.6-10.3); Creatinine, Serum 0.82 mg/dL (0.67-1.17); Globulin 2.8 g/dL (2-4); Magnesium 1.9 mg/dL (1.9-2.7); Potassium 4.4 mmol/L (3.5-5.0); Total Bilirubin 0.5 mg/dL (0.2-1.0); Total Protein 5.9 g/dL (6.4-8.9); eGFR CKD-EPI 89.9 (>60)
[2023-01-04] MEDS ORDERED: Albuterol/Ipratropium NEB.SOL (2.5/0.5 MG) 3 ML NEB.SOLN INH PRN (08:42)
[2023-01-04] MEDS ORDERED: CMCS:Meloxicam 7.5 mg TAB (NF) PO SCH (09:00)
[2023-01-04] MEDS: Enoxaparin 40 MG/0.4 ML SYR SUBCUT SCH (14:18)
[2023-01-04] MEDS ORDERED: Insulin GLARGINE 100 un/ml 10 ml VIAL SUBCUT SCH (21:00)
[2023-01-05] MEDS: ZOSYN 3.375 GM Q8H per EXTENDED INFUSION IV SCH (03:38)
[2023-01-05] MEDS ORDERED: RENACIDIN IRRIGATION SCH (09:00)
[2023-01-05 10:36] VITALS: BP 159/76
== END 2023-01-05 12:40 ==
LOC: ED 07:10 → INTOOBSV 12:22 → EDHOLD 12:22 → MED 15:06
PROVIDERS: ADMIT Internal Medicine; ATTEND Internal Medicine

== ENCOUNTER 2023-12-31 14:06 | Inpatient (IN) ==
[2023-12-31] MEDS: cefTRIAXone 1 gm/50 mL D5W 1 GM/50 ML BAG IV ONE (14:45)
[2023-12-31 14:47] LABS: ABS Basophils 0.1 10^3/uL (0.0-0.1); ABS Eosinophils 0.1 10^3/uL (0.0-0.5); ABS Monocytes 0.1 10^3/uL (0.0-1.1); ABS Neutrophils 6.5 10^3/uL (1.5-7.6); Eosinophil % 0.8 %; Hematocrit 34.2 % (38-53); Lymphocyte % 12.8 %; Mean Corpuscular Hemoglobin 28.1 pg (27-33); Mean Corpuscular Hgb Conc 32.3 g/dL (31-36); Mean Platelet Volume 8.6 fL (7.5-11.2); Platelet Count 244 10^3/uL (150-450); Red Blood Count 3.93 10^6/uL (4.06-5.63); Red Cell Distribution Width 17.6 % (12-17); White Blood Count 7.7 10^3/uL (3.6-10.2)
[2023-12-31] MEDS: Lactated Ringers SEPSIS* BAG 1,980 ML IV ONE (14:48)
[2023-12-31 15:06] LABS: Activated Partial Thrombo Time 29.5 seconds (26.0-38.0); INR 1.23 (0.85-1.14)
[2023-12-31 15:15] LABS: Urine Appearance Turbid; Urine Bilirubin Negative (Negative); Urine Blood Negative (Negative); Urine Color Yellow; Urine Glucose Negative (Negative); Urine Ketones Negative (Negative); Urine Nitrite 2+ (Negative); Urine Protein 1+ (>=30 mg/dL) (Negative); Urine Specific Gravity 1.016 (1.002-1.030); Urine Urobilinogen Negative (Negative); Urine pH 8.5 (5.0-8.0)
[2023-12-31 15:18] LABS: Albumin 3.5 g/dL (3.2-5.2); Albumin/Globulin Ratio 1.1 (1-3); C Reactive Protein 56.18 mg/L (<8.01); Calcium 8.4 mg/dL (8.6-10.3); Creatinine, Serum 1.34 mg/dL (0.67-1.17); Globulin 3.2 g/dL (2-4); Potassium 4.5 mmol/L (3.5-5.0); Total Bilirubin 0.7 mg/dL (0.2-1.0); Total Protein 6.7 g/dL (6.4-8.9); eGFR CKD-EPI 53.9 (>60)
[2023-12-31 15:22] LABS: Urine Bacteria 1+ /HPF (Absent); Urine Red Blood Cell 2+(6-10/hpf) /HPF (0-Trace); Urine Squamous Epithelial Cell Present /HPF (Absent); Urine White Blood Cell 2+(11-20/hpf) /HPF (0-Trace)
[2023-12-31] MEDS ORDERED: Dextrose 50% Syringe 50 ml 25 GM/50 ML SYRINGE IV PUSH PRN (17:24)
[2023-12-31] MEDS ORDERED: Zosyn per Pharmacy NOTE FOLLOW UP SCH (18:00)
[2023-12-31] MEDS: Enoxaparin 40 MG/0.4 ML SYR SUBCUT SCH (18:26)
[2023-12-31] MEDS: Piperacillin/Tazobac 3.375 BAG 3.375 GM/100 ML BAG IV ONE (18:28)
[2023-12-31] MEDS: Lactated Ringers 1000 ml BAG 1,000 ML IV SCH (20:52)
[2023-12-31] MEDS: Insulin GLARGINE 100 un/ml 10 ml VIAL SUBCUT SCH (20:58)
[2023-12-31] MEDS ORDERED: ZOSYN 3.375 GM Q8H per EXTENDED INFUSION IV SCH (22:30)
[2023-12-31] MEDS: ZOSYN 3.375 GM Q8H per EXTENDED INFUSION IV SCH (23:04)
[2024-01-01 06:57] LABS: ABS Basophils 0.1 10^3/uL (0.0-0.1); ABS Eosinophils 0.3 10^3/uL (0.0-0.5); ABS Lymphocytes 0.8 10^3/uL (1.0-4.8); ABS Monocytes 0.1 10^3/uL (0.0-1.1); ABS Neutrophils 6.5 10^3/uL (1.5-7.6); Eosinophil % 3.9 %; Hematocrit 31.9 % (38-53); Hemoglobin 10.3 g/dL (13.2-16.3); Mean Corpuscular Hemoglobin 28.3 pg (27-33); Mean Corpuscular Hgb Conc 32.1 g/dL (31-36); Mean Corpuscular Volume 87.9 fL (80-97); Mean Platelet Volume 8.5 fL (7.5-11.2); Nucleated Red Blood Cells % 0.1 %/100WBC (0.0-0.8); Platelet Count 174 10^3/uL (150-450); Red Blood Count 3.63 10^6/uL (4.06-5.63); Red Cell Distribution Width 17.5 % (12-17); White Blood Count 7.7 10^3/uL (3.6-10.2)
[2024-01-01 08:29] LABS: Albumin 2.9 g/dL (3.2-5.2); Albumin/Globulin Ratio 1.1 (1-3); Calcium 8.1 mg/dL (8.6-10.3); Creatinine, Serum 1.17 mg/dL (0.67-1.17); Direct Bilirubin 0.2 mg/dL (0.03-0.18); Globulin 2.7 g/dL (2-4); Indirect Bilirubin 0.5 mg/dL (0.3-1.0); Magnesium 1.6 mg/dL (1.9-2.7); Potassium 4.3 mmol/L (3.5-5.0); Total Bilirubin 0.7 mg/dL (0.2-1.0); Total Protein 5.6 g/dL (6.4-8.9); eGFR CKD-EPI 63.4 (>60)
[2024-01-01] MEDS: Aspirin EC 81 mg TAB.EC (enteric coated) PO SCH (09:18)
[2024-01-01] MEDS: Magnesium Sulf 4 GM/100 ML IV 4,000 MG/100 ML BAG IVPB ONE (18:59)
[2024-01-02 06:49] LABS: ABS Eosinophils 0.2 10^3/uL (0.0-0.5); ABS Lymphocytes 1.3 10^3/uL (1.0-4.8); ABS Monocytes 0.1 10^3/uL (0.0-1.1); ABS Neutrophils 4.3 10^3/uL (1.5-7.6); ABS Nucleated RBC 0.01 10^3/ul; Eosinophil % 3.8 %; Hemoglobin 9.1 g/dL (13.2-16.3); Lymphocyte % 21.2 %; Mean Corpuscular Hgb Conc 33.7 g/dL (31-36); Mean Corpuscular Volume 86.2 fL (80-97); Mean Platelet Volume 8.6 fL (7.5-11.2); Nucleated Red Blood Cells % 0.1 %/100WBC (0.0-0.8); Platelet Count 154 10^3/uL (150-450); Red Blood Count 3.13 10^6/uL (4.06-5.63); Red Cell Distribution Width 17.4 % (12-17)
[2024-01-02 07:26] LABS: Albumin 2.8 g/dL (3.2-5.2); Albumin/Globulin Ratio 1.1 (1-3); Calcium 7.9 mg/dL (8.6-10.3); Creatinine, Serum 0.95 mg/dL (0.67-1.17); Globulin 2.5 g/dL (2-4); Magnesium 2.3 mg/dL (1.9-2.7); Potassium 4.1 mmol/L (3.5-5.0); Total Bilirubin 0.4 mg/dL (0.2-1.0); Total Protein 5.3 g/dL (6.4-8.9); eGFR CKD-EPI 81.4 (>60)
[2024-01-03 06:18] LABS: Hematocrit 27.4 % (38-53); Hemoglobin 9.2 g/dL (13.2-16.3); Mean Corpuscular Hemoglobin 28.8 pg (27-33); Mean Corpuscular Hgb Conc 33.5 g/dL (31-36); Mean Platelet Volume 8.4 fL (7.5-11.2); Platelet Count 146 10^3/uL (150-450); Red Blood Count 3.19 10^6/uL (4.06-5.63); Red Cell Distribution Width 17.5 % (12-17); White Blood Count 4.7 10^3/uL (3.6-10.2)
[2024-01-03 06:51] LABS: Creatinine, Serum 0.9 mg/dL (0.67-1.17); Potassium 4.5 mmol/L (3.5-5.0); eGFR CKD-EPI 86.9 (>60)
[2024-01-03 14:27] VITALS: BP 124/68
[2024-01-03] MEDS: Sulfamethox/Trimethoprim DS TAB 800/160 mg PO ONE (16:59)
== END 2024-01-03 17:20 | DRG 689 ==
LOC: EDHOLD 14:06 → ED 14:06 → MED 21:06
PROVIDERS: ADMIT Student in an Organized Health Care Education/Training Program; ATTEND Hospitalist

== ENCOUNTER 2024-03-30 15:16 | Inpatient (IN) ==
[~2024-03-30 15:16] MED LIST: Hydrocortisone INJ 100 MG/2ML 2 ML VIAL IV SCH
[2024-03-30 16:07] LABS: ABS Basophils 0.1 10^3/uL (0.0-0.1); ABS Eosinophils 0.4 10^3/uL (0.0-0.5); ABS Lymphocytes 2.7 10^3/uL (1.0-4.8); ABS Monocytes 0.2 10^3/uL (0.0-1.1); ABS Neutrophils 11.5 10^3/uL (1.5-7.6); Eosinophil % 2.5 %; Hemoglobin 8.7 g/dL (13.2-16.3); Lymphocyte % 17.9 %; Mean Corpuscular Hgb Conc 31.1 g/dL (31-36); Mean Corpuscular Volume 83.5 fL (80-97); Mean Platelet Volume 8.1 fL (7.5-11.2); Platelet Count 329 10^3/uL (150-450); Red Blood Count 3.35 10^6/uL (4.06-5.63); Red Cell Distribution Width 17.8 % (12-17); White Blood Count 14.9 10^3/uL (3.6-10.2)
[2024-03-30] MEDS: Morphine 4 MG/ML VIAL (1 ml) IV ONE ×2 (16:08→19:29)
[2024-03-30] MEDS ORDERED: Ondansetron 4 mg VIAL 2 MG/ML 2 ml VIAL ONE (16:10)
[2024-03-30] MEDS: Ondansetron 4 mg VIAL 2 MG/ML 2 ml VIAL IV ONE (16:15)
[2024-03-30 16:50] LABS: Albumin 3.6 g/dL (3.5-5.7); Albumin/Globulin Ratio 1.1 (1-3); Creatinine, Serum 1.08 mg/dL (0.67-1.17); Globulin 3.2 g/dL (2-4); Potassium 4.2 mmol/L (3.5-5.0); Total Bilirubin 0.4 mg/dL (0.2-1.0); Total Protein 6.8 g/dL (6.4-8.9); eGFR CKD-EPI 69.4 (>60)
[2024-03-30] MEDS: Acetaminophen IV 1 GM/100ML 1,000 MG/100 ML BAG IV ONE ×2 (17:08→21:48)
[2024-03-30] MEDS: LACTATED RINGERS SEPSIS IV ONE (17:09)
[2024-03-30] MEDS: Piperacillin/Tazobac 3.375 BAG 3.375 GM/100 ML BAG IV ONE (17:10)
[2024-03-30 17:29] LABS: Urine Appearance Extra Turbid; Urine Bilirubin Negative (Negative); Urine Blood 1+ (Negative); Urine Glucose Negative (Negative); Urine Ketones Negative (Negative); Urine Nitrite 2+ (Negative); Urine Protein 1+ (>=30 mg/dL) (Negative); Urine Specific Gravity 1.016 (1.002-1.030); Urine Urobilinogen Negative (Negative); Urine pH 8.5 (5.0-8.0)
[2024-03-30 17:32] LABS: Urine Color Light-Yellow
[2024-03-30 17:36] LABS: Urine Bacteria 1+ /HPF (Absent); Urine Red Blood Cell 3+(>10/hpf) /HPF (0-Trace); Urine Squamous Epithelial Cell Present /HPF (Absent); Urine White Blood Cell 2+(11-20/hpf) /HPF (0-Trace)
[2024-03-30 22:23] LABS: TSH Ultra Thyroid Stim Horm 7.09 mcIU/mL (0.34-5.60)
[2024-03-30] MEDS: Lactated Ringers 1000 ml BAG 1,000 ML IV ONE (23:34)
[2024-03-30] MEDS ORDERED: Dextrose 50% Syringe 50 ml 25 GM/50 ML SYRINGE IV PUSH PRN (23:54)
[2024-03-30] MEDS ORDERED: Acetaminophen IV 1 GM/100ML 1,000 MG/100 ML BAG IV PRN (23:56)
[2024-03-31 00:51] LABS: Ferritin 25.5 ng/mL (24-336)
[2024-03-31] MEDS ORDERED: Vancomycin 1,000 MG in NS 0.9% 250 ml 250 ML IVPB ONE (01:28)
[2024-03-31] MEDS: Vancomycin 1,500 MG in NS 0.9% 250 ml 250 ML IVPB ONE (02:00)
[2024-03-31] MEDS ORDERED: Vancomycin per Pharmacy 1 EA NOTE FOLLOW UP SCH (02:00)
[2024-03-31] MEDS: Hydrocortisone INJ 100 MG/2ML 2 ML VIAL IV ONE (02:01)
[2024-03-31] MEDS: Polyethylene Glycol 3350 17 GM PACKET PO SCH (02:01)
[2024-03-31] MEDS: HYDROmorphone 0.5 MG/0.5 ML SYRINGE IV ONE (02:05)
[2024-03-31] MEDS: Enoxaparin 40 MG/0.4 ML SYR SUBCUT SCH (02:06)
[2024-03-31] MEDS: Norepinephrine 32MCG/ML D5WBAG 8,000 MCG/250 ML BAG IV SCH (02:20)
[2024-03-31] MEDS ORDERED: Sulfur Hexaflouride MICROSPHR 25 MG VIAL IV PRN (03:08)
[2024-03-31 03:50] LABS: T4, Total 7.77 mcg/dL (6.09-12.23)
[2024-03-31] MEDS: Magnesium Hydroxide LIQ 30 ML UDC PO ONE (05:39)
[2024-03-31] MEDS: Hydrocortisone INJ 100 MG/2ML 2 ML VIAL IV SCH (05:39)
[2024-03-31 05:42] LABS: ABS Lymphocytes 1.1 10^3/uL (1.0-4.8); ABS Monocytes 0.2 10^3/uL (0.0-1.1); ABS Neutrophils 17.9 10^3/uL (1.5-7.6); Eosinophil % 0.2 %; Hematocrit 24.6 % (38-53); Hemoglobin 7.6 g/dL (13.2-16.3); Lymphocyte % 5.9 %; Mean Corpuscular Hemoglobin 25.9 pg (27-33); Mean Corpuscular Hgb Conc 30.9 g/dL (31-36); Mean Corpuscular Volume 83.8 fL (80-97); Mean Platelet Volume 8.3 fL (7.5-11.2); Platelet Count 316 10^3/uL (150-450); Red Blood Count 2.93 10^6/uL (4.06-5.63); Red Cell Distribution Width 17.7 % (12-17); White Blood Count 19.3 10^3/uL (3.6-10.2)
[2024-03-31] MEDS ORDERED: Zosyn per Pharmacy NOTE FOLLOW UP SCH (06:00)
[2024-03-31 06:22] LABS: Albumin 2.8 g/dL (3.5-5.7); Albumin/Globulin Ratio 1.2 (1-3); Calcium 8.1 mg/dL (8.6-10.3); Creatinine, Serum 1.57 mg/dL (0.67-1.17); Globulin 2.4 g/dL (2-4); Magnesium 1.6 mg/dL (1.9-2.7); Phosphorus 5.3 mg/dL (2.5-5.0); Potassium 4.7 mmol/L (3.5-5.0); Total Bilirubin 0.6 mg/dL (0.2-1.0); Total Protein 5.2 g/dL (6.4-8.9); eGFR CKD-EPI 44.3 (>60)
[2024-03-31] MEDS: ZOSYN 3.375 GM x ONE DOSE over 30 miuntes IV (06:29)
[2024-03-31] MEDS: Mineral Oil ENEMA 118 ML/BOTTLE BOTTLE PR ONE ×2 (06:29→12:57)
[2024-03-31] MEDS: HYDROmorphone 0.5 MG/0.5 ML SYRINGE IV SCH (07:32)
[2024-03-31] MEDS: Magnesium Sulf 4 GM/100 ML IV 4,000 MG/100 ML BAG IVPB ONE (07:32)
[2024-03-31] MEDS: Pantoprazole VIAL 40 MG VIAL IV SCH (07:32)
[2024-03-31] MEDS: methylPREDNISolone SOD SUCC 40 mg/ml 1 ml VIAL IV SCH (08:00)
[2024-03-31] MEDS ORDERED: PEG 3000 GI LAVAGE 1 GALLON PO ONE (08:29)
[2024-03-31] MEDS: methylPREDNISolone SOD SUCC 40 mg/ml 1 ml VIAL IV ONE (08:36)
[2024-03-31] MEDS: Insulin GLARGINE 100 un/ml 10 ml VIAL SUBCUT SCH (08:36)
[2024-03-31] MEDS ORDERED: HYDROmorphone 0.5 MG/0.5 ML SYRINGE IV PRN (10:39)
[2024-03-31] MEDS: ZOSYN 3.375 GM Q8H per EXTENDED INFUSION IV SCH (11:02)
[2024-03-31] MEDS ORDERED: Vancomycin 1000 MG in NS 0.9% 250 ML IVPB SCH (12:00)
[2024-03-31] MEDS: PEG 3000 GI LAVAGE 1 GALLON ONE (12:57)
[2024-03-31] MEDS: Iron Sucrose 200 MG in NS 0.9% 100 ml BAG 100 ML IVPB SCH (13:19)
[2024-03-31] MEDS: HYDROmorphone 1 MG/1 ML SYRINGE IV PRN (14:03)
[2024-03-31] MEDS: Lactated Ringers 1000 ml BAG 1,000 ML IV SCH (14:03)
[2024-03-31] MEDS: Acetaminophen IV 1 GM/100ML 1,000 MG/100 ML BAG IV SCH (14:03)
[2024-03-31] MEDS: metroNIDAZOLE IV 500 MG/100ML 500 MG/100 ML BAG IVPB SCH (15:51)
[2024-03-31] MEDS: Cefepime 1 GM in Dextrose 1 GM/50 ML BAG IV SCH (17:47)
[2024-03-31 22:15] LABS: Albumin 2.8 g/dL (3.5-5.7); Albumin/Globulin Ratio 1.1 (1-3); Calcium 7.9 mg/dL (8.6-10.3); Creatinine, Serum 1.26 mg/dL (0.67-1.17); Globulin 2.5 g/dL (2-4); Potassium 4.5 mmol/L (3.5-5.0); Total Bilirubin 0.5 mg/dL (0.2-1.0); Total Protein 5.3 g/dL (6.4-8.9); eGFR CKD-EPI 57.7 (>60)
[2024-04-01 05:00] LABS: Hematocrit 21.9 % (38-53); Hemoglobin 7.2 g/dL (13.2-16.3); Mean Corpuscular Hemoglobin 26.6 pg (27-33); Mean Corpuscular Volume 80.6 fL (80-97); Mean Platelet Volume 8.1 fL (7.5-11.2); Platelet Count 251 10^3/uL (150-450); Red Blood Count 2.72 10^6/uL (4.06-5.63); Red Cell Distribution Width 18.3 % (12-17); White Blood Count 8.4 10^3/uL (3.6-10.2)
[2024-04-01 05:22] LABS: Albumin 2.6 g/dL (3.5-5.7); Albumin/Globulin Ratio 1.2 (1-3); Calcium 7.4 mg/dL (8.6-10.3); Creatinine, Serum 1.18 mg/dL (0.67-1.17); Globulin 2.2 g/dL (2-4); Magnesium 3.4 mg/dL (1.9-2.7); Phosphorus 5.4 mg/dL (2.5-5.0); Total Bilirubin 0.5 mg/dL (0.2-1.0); Total Protein 4.8 g/dL (6.4-8.9); eGFR CKD-EPI 62.4 (>60)
[2024-04-01 05:42] LABS: ABS Lymphocytes 0.6 10^3/uL (1.0-4.8); ABS Monocytes 0.2 10^3/uL (0.0-1.1); ABS Neutrophils 7.6 10^3/uL (1.5-7.6); ABS Nucleated RBC 0.01 10^3/ul; Eosinophil % 0.1 %; Lymphocyte % 7.6 %; Nucleated Red Blood Cells % 0.1 %/100WBC (0.0-0.8)
[2024-04-01] MEDS ORDERED: Vancomycin 1,250 MG in NS 0.9% 250 ml 250 ML IVPB SCH (06:00)
[2024-04-01] MEDS ORDERED: Magnesium Sulfate IV 1GM/100ML 1 GM/100 ML BAG IV ONE (07:15)
[2024-04-01] MEDS: Hydrocortisone INJ 100 MG/2ML 2 ML VIAL IV SCH (10:18)
[2024-04-01] MEDS ORDERED: Vancomycin Trough Check NOTE FOLLOW UP ONE (11:30)
[2024-04-01] MEDS: Morphine 2 MG/ML SYRINGE IV PRN (12:09)
[2024-04-01] MEDS ORDERED: Ondansetron 4 mg VIAL 2 MG/ML 2 ml VIAL IV PRN (14:53)
[2024-04-01] MEDS ORDERED: Atropine 1% (ORAL/SL) 15 ML BTL SL PRN (14:53)
[2024-04-01] MEDS ORDERED: Polyethylene Glycol 3350 17 GM PACKET PO PRN (14:53)
[2024-04-01] MEDS ORDERED: LORazepam 2 mg VIAL 1 ml IV PUSH PRN (14:53)
[2024-04-01] MEDS ORDERED: Morphine ORAL CONCENTRATE 5 MG/0.25 ML ORAL.SYRIN PO PRN (14:53)
[2024-04-01] MEDS ORDERED: Lorazepam PYXIS KEY PRN (15:02)
[2024-04-02] MEDS ORDERED: Ondansetron ODT 4 mg TAB 4 MG TAB SL PRN (18:56)
[2024-04-02] MEDS ORDERED: Morphine ORAL CONCENTRATE 5 MG/0.25 ML ORAL.SYRIN PO PRN (18:56)
[2024-04-02 23:38] VITALS: BP 123/44
[2024-04-03] MEDS ORDERED: Vancomycin Trough Check NOTE FOLLOW UP ONE (05:30)
[2024-04-03] MEDS: Polyethylene Glycol 3350 17 GM PACKET PO SCH (09:46)
== END 2024-04-03 11:39 | DRG 871 ==
LOC: ED 15:16 → MEDTELE 20:37 → SUATTDRO 20:37 → EDHOLD 20:37 → ICU 03-31 04:14 → MEDTELE 04-01 23:07
PROVIDERS: ADMIT Internal Medicine; ATTEND Internal Medicine